=== PATIENT | male | born 1955 | race Caucasian/White ===

== ENCOUNTER 2024-04-09 08:23 | Emergency (ER) | payer MEDICARE, OTHER ==
[~2024-04-09] VITALS: Ht 177.8 cm; Wt 82.7 kg
[~2024-04-09 08:23] MED LIST: ASPI81TA52 PO; ATOR20TA66 PO; CHOL100046 PO; DOCU-337 PO; HYDR-3972 PO; LOP12.5T PO; MAGN400C PO; MULT-1085 PO; SACC250C9 PO; TEST200V33 IM; TURM500C13 PO
[2024-04-09 09:49] VITALS: BP 134/86; PULSE 78; RESP 23; O2SAT 98
[2024-04-09 10:09] LABS: BILIRUBIN,URINE NEGATIVE (Neg); CLARITY,URINE CLEAR (Clear); COLOR,URINE YELLOW (Yellow); GLUCOSE, URINE NEGATIVE (Neg); KETONES,URINE NEGATIVE (Neg); LEUKOCYTE ESTERASE ,URINE NEGATIVE (Neg); NITRITES, URINE NEGATIVE (Neg); OCCULT BLOOD,URINE TRACE-INTACT (Neg); PH,URINE 6.5 (4.8-8.0); PROTEIN,URINE NEGATIVE (Neg)
[2024-04-09 10:10] LABS: UA COLLECTION TYPE CLN CATCH MIDSTREAM
[2024-04-09 10:34] LABS: WBC,URINE 0-4 /HPF (0-4)
[2024-04-09 10:35] LABS: BACTERIA,URINE FEW /HPF (Neg); MUCUS STRANDS MANY /LPF (Neg); SQUAMOUS EPITHELIAL CELL,UR NONE SEEN /LPF (FEW)
[2024-04-09 10:37] LABS: RBC,URINE 20-50 /HPF (0-2)
[2024-04-09 18:24] VITALS: TEMP 98.3
== END 2024-04-09 18:26 | disposition home or self-care (01) ==
LOC: ER 08:23
DX: U07.1 COVID-19 (principal); Z79.82 Long term (current) use of aspirin; Z79.899 Other long term (current) drug therapy
CPT/HCPCS: 36415; 71046; 81001; 87811; 99284

== ENCOUNTER 2024-04-21 11:44 | Outpatient (CLI) | payer MEDICARE, OTHER | END 2024-04-21 23:59 | disposition home or self-care (01) | LOC: RAD 11:44 | PROVIDERS: ATTEND Thoracic Surgery (Cardiothoracic Vascular Surgery) | DX: I51.7 Cardiomegaly (principal); Z95.5 Presence of coronary angioplasty implant and graft | CPT/HCPCS: 71046 ==